=== PATIENT | male | born 1995 | race Two or more races ===

== ENCOUNTER → 2024-12-23 | Emergency (ER) | payer OTHER ==
[~2024-12-23] VITALS: Ht 170.2 cm; Wt 81.6 kg
[~2024-12-23] MED LIST: 0.9 % SODIUM CHLORIDE 1,000 ML IV ONE; CIPRO500 MG PO; FAMOtidine 10 MG/ML (4ML VIAL) IV ONE; KETOROLAC TROMETHAMINE 30 MG VIAL IV ONE; LEVSIN/SL0.125 MG SL; METRONIDAZOLE500 MG PO; ONDANSETRON HCL 2 MG/ML VIAL IV ONE; PEPCID AC20 MG PO; PROBIOTIC1 EAC2 PO; ZOFRAN8 MG PO
[2024-12-23 21:33] LABS: ALT/SGPT 25.0 U/L (12-78); AST/SGOT 15.0 U/L (15-37); BILIRUBIN TOTAL 0.7 mg/dL (0.3-1.2); BUN CREA RATIO 14.0 (7.0-25.0); CREATININE SERUM 1.08 mg/dL (0.70-1.30); GFR 80.83; GLOBULINA 4.8 G/DL (2.4-3.5); GLUCOSE FASTING 107.0 mg/dL (65-100); OSMOLALITY SERUM 279.0 MOSM/KG (275-295)
[2024-12-23 21:35] LABS: URINE APPEARANCE Cloudy; URINE BILIRRUBIN Negative (NEGATIVE); URINE COLOR Yellow; URINE GLUCOSE Negative (NEGATIVE); URINE LEUKOCYTE Negative; URINE NITRATE Negative; URINE PROTEIN Trace (NEGATIVE); URINE UROBILINOGEN 1.0 E.U./dl
[2024-12-23 21:39] LABS: URINE BACTERIA 10.7 uL (0.0-1933); URINE EPITHELIAL CELLS 6.7 uL (0.0-38.8); URINE RBC 42.0 uL (0.0-20.8); URINE WBC 9.2 uL (0.0-23.2)
[2024-12-23 21:43] LABS: URINE BLOOD Trace; URINE CAST 1.02 uL (0.0-1.40); URINE KETONE 80 (NEGATIVE)
[2024-12-23 21:44] LABS: BASO % 0.1 % (0.1-1.2); EOS # 0.00 (0.04-0.54); EOS % 0.0 % (0.7-7.0); LYMPH # 0.53 (1.18-3.74); LYMPH % 5.2 % (19.3-53.1); MEAN PLATELET VOLUME 8.50 fl (9.4-12.4); MONO # 0.33 (0.24-0.82); MONO % 3.2 % (4.7-12.5); NEUT # 9.33 (1.56-6.13); NEUT % 91.2 % (34.0-71.1); RED CELL DISTRIBUTION WIDTH 11.9 % (11.6-14.4)
[2024-12-23 22:06] LABS: INR 1.03
== END | disposition home or self-care (01) ==
LOC: ER 18:53
PROVIDERS: General Practice
DX: R19.7 Diarrhea, unspecified (principal); R11.2 Nausea with vomiting, unspecified; R10.9 Unspecified abdominal pain; R11.10 Vomiting, unspecified
CPT/HCPCS: 36415; 74177; Q9965